=== PATIENT | male | born 1955 | race Two or more races ===

== ENCOUNTER 2019-09-23 13:38 | Emergency (ER) | payer SELFPAY ==
[~2019-09-23] VITALS: Ht 172.7 cm; Wt 81.0 kg
[2019-09-23 14:24] LABS: BASOPHILS % 0.9 % (0.0-2.0); HEMATOCRIT. 46.2 % (42.0-52.0); HEMOGLOBIN. 15.9 g/dL (14.0-18.0); LYMPHOCYTES % 57.4 % (20.0-50.0); MEAN CORPUSCULAR HEMOGLOBIN 30.9 pg (28.0-32.0); MEAN CORPUSCULAR VOLUME 89.6 fL (80.0-94.0); MEAN PLATELET VOLUME 8.4 fl (7.4-10.4); MONOCYTES % 6.1 % (2.0-8.0); NEUTROPHILS % 34.6 % (40.0-76.0); PLATELET 147 x1000/uL (130-400); RED BLOOD CELL COUNT 5.15 mill/uL (4.7-6.1); RED CELL DISTRIBUTION WIDTH 14.8 % (11.6-14.6)
[2019-09-23 14:30] LABS: CHLORIDE 108 mEq/L (98-107)
[2019-09-23 14:48] LABS: ETHANOL BLOOD 460 mg/dL
[2019-09-23 16:05] VITALS: BP 139/91
== END 2019-09-23 16:51 | disposition left against medical advice (07) ==
LOC: ER 13:38
DX: F10.129 Alcohol abuse with intoxication, unspecified (principal); Y90.8 Blood alcohol level of 240 mg/100 ml or more; R73.9 Hyperglycemia, unspecified
CPT/HCPCS: 36415; 80053; 80320; 85025; 93005; 99283; 99284; G0480

== ENCOUNTER 2019-10-17 19:12 | Emergency (ER) | payer SELFPAY | END 2019-10-17 20:49 | disposition left against medical advice (07) | LOC: ER 19:12 | DX: Z53.21 Procedure and treatment not carried out due to patient leaving prior to being seen by health care provider (principal) ==

== ENCOUNTER 2019-10-18 22:26 | Emergency (ER) | payer SELFPAY ==
[~2019-10-18] VITALS: Ht 165.1 cm; Wt 77.0 kg
[2019-10-18 23:39] LABS: BASOPHILS % 1.5 % (0.0-2.0); EOSINOPHILS % 0.6 % (0.0-5.0); HEMATOCRIT. 44.3 % (42.0-52.0); HEMOGLOBIN. 15.4 g/dL (14.0-18.0); LYMPHOCYTES % 50.5 % (20.0-50.0); MEAN CORPUSCULAR HEMOGLOBIN 31.1 pg (28.0-32.0); MEAN CORPUSCULAR VOLUME 89.5 fL (80.0-94.0); MEAN PLATELET VOLUME 10.2 fl (7.4-10.4); MONOCYTES % 8.5 % (2.0-8.0); NEUTROPHILS % 38.9 % (40.0-76.0); PLATELET 153 x1000/uL (130-400); RED BLOOD CELL COUNT 4.95 mill/uL (4.7-6.1); RED CELL DISTRIBUTION WIDTH 14.8 % (11.6-14.6)
[2019-10-18] MEDS ORDERED: KETOROLAC 30MG/ML VIAL IV ONE (23:45)
[2019-10-18] MEDS ORDERED: SODIUM CHLORIDE 0.9% 1,000 ML IV ONE (23:45)
[2019-10-19 00:09] LABS: CHLORIDE 100 mEq/L (98-107)
[2019-10-19 01:15] VITALS: BP 134/71
[2019-10-19] MEDS ORDERED: POTASSIUM CHLORIDE 20MEQ TABLET SR PO NR (01:15)
== END 2019-10-19 02:58 | disposition home or self-care (01) ==
LOC: ER 22:26
DX: R53.1 Weakness (principal); E87.6 Hypokalemia; R94.5 Abnormal results of liver function studies; F10.10 Alcohol abuse, uncomplicated; I10 Essential (primary) hypertension; Y90.9 Presence of alcohol in blood, level not specified
CPT/HCPCS: 36415; 71045; 80053; 83880; 84484; 85025; 93005; 96361; 96374; 99285; J1885; J7030

== ENCOUNTER 2019-11-18 14:53 | Emergency (ER) | payer MEDICAID ==
[~2019-11-18] VITALS: Ht 170.2 cm; Wt 75.0 kg
[2019-11-18 15:25] VITALS: BP 146/91
[2019-11-18 15:53] LABS: EOSINOPHILS % 0.5 % (0.0-5.0); HEMATOCRIT. 36.9 % (42.0-52.0); HEMOGLOBIN. 12.6 g/dL (14.0-18.0); LYMPHOCYTES % 39.5 % (20.0-50.0); MEAN CORPUSCULAR HEMOGLOBIN 31.1 pg (28.0-32.0); MEAN CORPUSCULAR VOLUME 90.9 fL (80.0-94.0); MEAN PLATELET VOLUME 9.2 fl (7.4-10.4); MONOCYTES % 6.1 % (2.0-8.0); NEUTROPHILS % 52.9 % (40.0-76.0); PLATELET 56 x1000/uL (130-400); RED BLOOD CELL COUNT 4.05 mill/uL (4.7-6.1); RED CELL DISTRIBUTION WIDTH 17.1 % (11.6-14.6)
[2019-11-18 16:02] LABS: CHLORIDE 106 mEq/L (98-107)
[2019-11-18 16:15] LABS: ETHANOL BLOOD 462 mg/dL
== END 2019-11-18 16:09 | disposition left against medical advice (07) ==
LOC: ER 14:53
DX: F10.129 Alcohol abuse with intoxication, unspecified (principal); Y90.8 Blood alcohol level of 240 mg/100 ml or more; S60.512A Abrasion of left hand, initial encounter; S60.511A Abrasion of right hand, initial encounter; Y04.2XXA Assault by strike against or bumped into by another person, initial encounter; Y93.89 Activity, other specified; Y92.018 Other place in single-family (private) house as the place of occurrence of the external cause
CPT/HCPCS: 36415; 80048; 80320; 85025; 93005; 99283; G0480